=== PATIENT | female | born 1975 | race Caucasian/White ===

== ENCOUNTER 2022-07-08 10:46 | Emergency (ER) | payer OTHER, SELFPAY ==
[2022-07-08] VITALS (15 sets, daily range): BP systolic 113–170; BP diastolic 54–85; PULSE 62–130; RESP 15–25; TEMP 37.1; O2SAT 96–100; BMI 25.0
--- NOTE | 2022-07-08 10:52 | DI.RAD.S_ITS ---
PROCEDURE: XR CHEST 2V INDICATIONS: shortness of breath TECHNIQUE: 2 views of the chest were acquired. COMPARISON: None. FINDINGS: Surgical changes and devices: None. Lungs and pleura: Lungs are clear. No pleural effusions or pneumothorax. Mediastinum: Mediastinal contours are normal. Heart size is normal. Bones and chest wall: No suspicious bony abnormalities. Soft tissues appear unremarkable. IMPRESSION: No acute cardiopulmonary pathology. Dictated by: Inder Chery M.D. on 07/08/2022 at 11:32 Approved by: Inder Chery M.D. on 07/08/2022 at 11:33
[2022-07-08 12:19] LABS: INR 1.1 (0.9-1.3); Prothrombin Time 12.7 SECONDS (10.1-12.7)
[2022-07-08 12:20] LABS: Add Manual Diff / Slide Review NO; Basophils Absolute Auto 0 /uL (0-100); Basophils Percent Auto 0.6 % (0-2); Eosinophils Absolute Auto 0 /uL (0-450); Eosinophils Percent Auto 0.4 % (2-4); Hematocrit 37.6 % (36-46); Lymphocytes Absolute Auto 1200 /uL (1100-4500); Lymphocytes Percent Auto 23.3 % (25-40); Mean Corpuscular HGB Conc 34.5 % (30-36); Mean Corpuscular Hemoglobin 31.7 PG (26-34); Monocytes Absolute Auto 500 /uL (0-900); Neutrophils Absolute Auto 3500 /uL (1500-7000); Neutrophils Percent Auto 66.7 % (50-75); Platelet Count 193 X10^3/uL (150-400); Red Blood Cell Count 4.09 X10^6/uL (4.0-5.2); Red Cell Distribution Width 12.6 % (11.6-14.8); White Blood Cell Count 5.2 X10^3/uL (4.5-11.0)
[2022-07-08 12:22] LABS: Alanine Aminotransferase 16 IU/L (<35); Albumin 4.3 g/dL (3.5-5.0); Albumin Globulin Ratio 1.5 (1.0-2.8); Alkaline Phosphatase 72 U/L (38-126); Aspartate Aminotransferase 29 IU/L (14-36); BUN Creatinine Ratio 17.9 (6-22); Bilirubin Total 1.3 mg/dL (0.2-1.3); Blood Urea Nitrogen 14 mg/dL (7-17); Carbon Dioxide 27 mmol/L (22-32); Chloride 103 mmol/L (98-107); Creatine Kinase 68 U/L (30-135); Estimated Glomerular Filt Rate > 60 mL/min (>60); Globulin 2.9 g/dL (1.7-4.1); Glucose 94 mg/dL (70-100); HEMOLYSIS < 15 (0-50); Sodium 138 mmol/L (137-145); Total Protein 7.2 g/dL (6.3-8.2)
[2022-07-08 12:25] LABS: Lactate (Lactic Acid) 0.8 mmol/L (0.7-2.1)
[2022-07-08 12:31] LABS: NT-proBNP (BNP-Adult 18+) 55 pg/mL (<125)
[2022-07-08 12:34] LABS: Troponin I < 0.012 ng/mL (0.01-0.034)
[2022-07-08 12:48] LABS: COVID19 -Nasal RAPID Negative (Negative)
--- NOTE | 2022-07-08 12:57 | ED_ITS ---
HPI - Chest Pain General Chief Complaint: Chest Pain Stated Complaint: SOB, Chest pain Time Seen by Provider: 07/08/22 11:03 Source: patient Mode of arrival: Ambulatory Limitations: no limitations History of Present Illness HPI narrative: Patient is a healthy 46-year-old female who presents with palpitations and some lightheadedness. She says 4 days ago she got started on minocycline for adult acne. Today however she feels like her heart is racing she feels like she is short of breath she has a little lightheaded. She also reports that she feels like she has a rubber band around her right ankle at times and can see her pulse anteriorly. She has no numbness tingling or weakness. She has no calf pain. S he has not traveled she denies any hormonal use. She has not had any fever or chills. She has been tearful many times in the emergency department. Related Data Allergies Allergy/AdvReac Type Severity Reaction Status Date / Time No Known Drug Allergies Allergy Verified 07/08/22 11:56 Review of Systems Review of Systems Narrative: GENERAL: Denies chills, fatigue, malaise, fever, sweats, travel HEENT: Denies sinus pain, ear pain, sore throat, difficulty swallowing, neck pain RESPIRATORY: Denies dyspnea, cough, wheezing, hemoptysis, sputum. CARDIOVASCULAR: See HPI GASTROINTESTINAL: Denies nausea, vomiting, abdominal pain, diarrhea, constipation, melena. : Denies dysuria, frequency, incontinence, hematuria, urinary retention, flank pain. MUSCULOSKELETAL: Denies weakness, joint pain, or bony pain SKIN: No rash, no erythema, no pruritus NEUROLOGIC: Denies weakness, dizziness, headache, numbness, change in speech, confusion PSYCHIATRIC: No concerning psychosocial issues. 12 point review of systems is negative except for those stated above and HPI Exam Initial Vital Signs Initial Vital Signs: Vital Signs Temperature 98.8 F 07/08/22 10:48 Pulse Rate 62 07/08/22 10:48 Respiratory Rate 18 07/08/22 10:48 Blood Pressure 170/74 H 07/08/22 10:48 Pulse Oximetry 100 07/08/22 10:48 Oxygen Delivery Method 07/08/22 10:48 GENERAL: Well-appearing, well-nourished and in distress. HEENT: Head atraumatic,EOMI, pupils reactive, face symmetric, moist mucous membranes CARDIOVASCULAR: Regular rate and rhythm without murmurs, rubs or gallops. RESPIRATORY: Breath sounds equal bilaterally, no wheezes rales or rhonchi. ABDOMEN: Soft, nontender. Normoactive bowel sounds all 4 quadrants. No guarding or rebound. EXTREMITIES: Normal range of motion, no clubbing or edema. Neurovascularly intact NEUROLOGICAL: Alert and oriented x4.Normal gait and speech. SKIN: Warm, dry, no laceration, no petechiae, no rashes or lesions. Scores HEART Score Heart Score history: Slightly Suspicious Heart Score EKG: Normal Heart Score Age: < 45 years old Heart Score risk factors: No known risk factors Heart Score troponin: < or = to normal limit Heart Score Total: 0 PERC Score Age greater than or equal to 50 years: No Heart rate greater than or equal to 100 bpm: Yes Room Air O2 Sat less than 95%: No Unilateral leg swelling: No Recent trauma or surgery: No Hemoptysis: No Prior PE or DVT: No Hormone Use: No Total PERC Score: 1 Course Orders Ordered: ED Orders 07/08/22 10:52 XR chest 2V Stat Measure peak expiratory flow ONCE RT Consult Eval and Treat Now 07/08/22 11:10 EKG-12 Lead Stat 07/08/22 11:43 Complete Blood Count AUTO DIFF Stat Comprehensive Metabolic Panel Stat D Dimer Stat Lactate (Lactic Acid) Stat NT-proBNP (BNP-Adult 18+) Stat Prothrombin Time INR Stat Troponin & CK Cardiac Panel Stat 07/08/22 12:33 COVID19 -Nasal RAPID/Pre-Proc Stat 07/08/22 13:00 EKG-12 Lead Stat Vital Signs Vital signs: Vital Signs - 8 hr 07/08/22 10:48 07/08/22 11:09 07/08/22 11:30 Temperature 98.8 F Pulse Rate 62 67 82 Respiratory Rate 18 25 H Blood Pressure 170/74 H Pulse Oximetry 100 99 Oxygen Delivery Method Room Air 07/08/22 11:35 07/08/22 11:35 07/08/22 12:00 Temperature Pulse Rate 62 Respiratory Rate 18 Blood Pressure 116/57 L 115/56 L Pulse Oximetry 98 Oxygen Delivery Method 07/08/22 12:00 07/08/22 12:30 07/08/22 12:30 Temperature Pulse Rate 62 67 Respiratory Rate 16 19 Blood Pressure 113/54 L Pulse Oximetry 98 99 Oxygen Delivery Method 07/08/22 12:31 07/08/22 12:32 07/08/22 13:29 Temperature Pulse Rate 65 130 H Respiratory Rate 19 Blood Pressure 124/56 L Pulse Oximetry 99 Oxygen Delivery Method MDM - Chest Pain Lab Data Result diagrams: 07/08/22 11:43 07/08/22 11:43 Labs: Lab Results 07/08/22 07/08/22 07/08/22 Range/Units 11:43 11:43 11:43 WBC 5.2 (4.5-11.0) X10^3/uL RBC 4.09 (4.0-5.2) X10^6/uL Hgb 13.0 (12.0-16.0) g/dL Hct 37.6 (36-46) % MCV 92.0 (80-100) fL MCH 31.7 (26-34) PG MCHC 34.5 (30-36) % RDW 12.6 (11.6-14.8) % Plt Count 193 (150-400) X10^3/uL Neut % (Auto) 66.7 (50-75) % Lymph % (Auto) 23.3 L (25-40) % [place] % (Auto) 9.0 (3-14) % Eos % (Auto) 0.4 L (2-4) % Baso % (Auto) 0.6 (0-2) % Neut # (Auto) 3500 (3109-4080) /uL Lymph # (Auto) 1200 (8739-6527) /uL [place] # (Auto) 500 (0-900) /uL Eos # (Auto) 0 (0-450) /uL Baso # (Auto) 0 (0-100) /uL PT 12.7 (10.1-12.7) SECONDS INR 1.1 (0.9-1.3) D-Dimer (<500) ng/ml Sodium 138 (137-145) mmol/L Potassium 4.0 (3.4-5.1) mmol/L Chloride 103 (98-107) mmol/L Carbon Dioxide 27 (22-32) mmol/L BUN 14 (7-17) mg/dL Creatinine 0.78 (0.52-1.04) mg/dL Estimated GFR > 60 (>60) mL/min BUN/Creatinine Ratio 17.9 (6-22) Glucose 94 (70-100) mg/dL Lactate (0.7-2.1) mmol/L Calcium 9.0 (8.4-10.2) mg/dL Total Bilirubin 1.3 (0.2-1.3) mg/dL AST 29 (14-36) IU/L ALT 16 (<35) IU/L Alkaline Phosphatase 72 (38-126) U/L Total Creatine Kinase (30-135) U/L CK-MB (CK-2) CK-MB (CK-2) Rel Index Troponin I (0.01-0.034) ng/mL NT-Pro-B Natriuret Pep 55 (<125) pg/mL Total Protein 7.2 (6.3-8.2) g/dL Albumin 4.3 (3.5-5.0) g/dL Globulin 2.9 (1.7-4.1) g/dL Albumin/Globulin Ratio 1.5 (1.0-2.8) SARS-CoV-2 (PCR) (Negative) 07/08/22 07/08/22 07/08/22 Range/Units 11:43 11:43 11:43 WBC (4.5-11.0) X10^3/uL RBC (4.0-5.2) X10^6/uL Hgb (12.0-16.0) g/dL Hct (36-46) % MCV (80-100) fL MCH (26-34) PG MCHC (30-36) % RDW (11.6-14.8) % Plt Count (150-400) X10^3/uL Neut % (Auto) (50-75) % Lymph % (Auto) (25-40) % [place] % (Auto) (3-14) % Eos % (Auto) (2-4) % Baso % (Auto) (0-2) % Neut # (Auto) (0206-3884) /uL Lymph # (Auto) (2913-6881) /uL [place] # (Auto) (0-900) /uL Eos # (Auto) (0-450) /uL Baso # (Auto) (0-100) /uL PT (10.1-12.7) SECONDS INR (0.9-1.3) D-Dimer < 500 (<500) ng/ml Sodium (137-145) mmol/L Potassium (3.4-5.1) mmol/L Chloride (98-107) mmol/L Carbon Dioxide (22-32) mmol/L BUN (7-17) mg/dL Creatinine (0.52-1.04) mg/dL Estimated GFR (>60) mL/min BUN/Creatinine Ratio (6-22) Glucose (70-100) mg/dL Lactate 0.8 (0.7-2.1) mmol/L Calcium (8.4-10.2) mg/dL Total Bilirubin (0.2-1.3) mg/dL AST (14-36) IU/L ALT (<35) IU/L Alkaline Phosphatase (38-126) U/L Total Creatine Kinase 68 (30-135) U/L CK-MB (CK-2) TNP CK-MB (CK-2) Rel Index TNP Troponin I < 0.012 (0.01-0.034) ng/mL NT-Pro-B Natriuret Pep (<125) pg/mL Total Protein (6.3-8.2) g/dL Albumin (3.5-5.0) g/dL Globulin (1.7-4.1) g/dL Albumin/Globulin Ratio (1.0-2.8) SARS-CoV-2 (PCR) (Negative) 07/08/22 Range/Units 12:33 WBC (4.5-11.0) X10^3/uL RBC (4.0-5.2) X10^6/uL Hgb (12.0-16.0) g/dL Hct (36-46) % MCV (80-100) fL MCH (26-34) PG MCHC (30-36) % RDW (11.6-14.8) % Plt Count (150-400) X10^3/uL Neut % (Auto) (50-75) % Lymph % (Auto) (25-40) % [place] % (Auto) (3-14) % Eos % (Auto) (2-4) % Baso % (Auto) (0-2) % Neut # (Auto) (2077-2805) /uL Lymph # (Auto) (7982-3819) /uL [place] # (Auto) (0-900) /uL Eos # (Auto) (0-450) /uL Baso # (Auto) (0-100) /uL PT (10.1-12.7) SECONDS INR (0.9-1.3) D-Dimer (<500) ng/ml Sodium (137-145) mmol/L Potassium (3.4-5.1) mmol/L Chloride (98-107) mmol/L Carbon Dioxide (22-32) mmol/L BUN (7-17) mg/dL Creatinine (0.52-1.04) mg/dL Estimated GFR (>60) mL/min BUN/Creatinine Ratio (6-22) Glucose (70-100) mg/dL Lactate (0.7-2.1) mmol/L Calcium (8.4-10.2) mg/dL Total Bilirubin (0.2-1.3) mg/dL AST (14-36) IU/L ALT (<35) IU/L Alkaline Phosphatase (38-126) U/L Total Creatine Kinase (30-135) U/L CK-MB (CK-2) CK-MB (CK-2) Rel Index Troponin I (0.01-0.034) ng/mL NT-Pro-B Natriuret Pep (<125) pg/mL Total Protein (6.3-8.2) g/dL Albumin (3.5-5.0) g/dL Globulin (1.7-4.1) g/dL Albumin/Globulin Ratio (1.0-2.8) SARS-CoV-2 (PCR) Negative (Negative) Imaging Data Chest x-ray: Radiologist's Impression: Signed Patient: Asya Casas MR#: [id number] : 1975 Acct:[id number] Age/Sex: 46 / F Date of Service: 07/08/22 Loc: ED Accession Number: [id number] ?? Procedure: XR chest 2V Ordering Provider: Rosanna Castanon D.O. PROCEDURE:? XR CHEST 2V ? INDICATIONS:? shortness of breath ? TECHNIQUE:? 2 views of the chest were acquired.? ? COMPARISON:? None. ? FINDINGS:? ? Surgical changes and devices:? None.? ? Lungs and pleura:? Lungs are clear.? No pleural effusions or pneumothorax.? ? Mediastinum:? Mediastinal contours are normal.? Heart size is normal.? ? Bones and chest wall:? No suspicious bony abnormalities.? Soft tissues appear unremarkable.? ? IMPRESSION:? No acute cardiopulmonary pathology. ? ? Dictated by: Inder Chery M.D. on 07/08/2022 at 11:32 ? ? ECG Data Interpretation: Normal sinus rhythm rate 59 MO interval 1 2 QRS [address] changes inversion Normal sinus rhythm rate 69 MO interval [address] changes similar to previous EKG MDM Narrative Medical decision making narrative: Patient has had runs of sinus tachycardia in the 130s. At that time nursing staff but since she is very tearful emotional and is easily talked to in her heart rate improves. Not sure if her her symptoms are related to minocycline or not. I encouraged her to stop the antibiotic and see if her symptoms improve. Her D-dimer is negative her EKGs are normal her chest x-ray is negative troponin negative. At this time she certainly has no sign of infection. She is neurologically intact. Minocycline does not cause palpitations but it can cause dizziness in were severely Santacruz-Nicolas. She certainly has no rash or sign of severe adverse reaction. I have explained to her all of these things and tried to reassure her. There is certainly no life-threatening emergency that I see at this time the. She complains of a rubber band around her right ankle. There is no swelling there is no erythema again is negative unlikely to be a DVT. Discharge Plan Departure Patient Disposition: Home Clinical Impression: Palpitations Instructions: DI for Palpitations Activity Restrictions/Additional Instructions: *You have been diagnosed with palpitation *What to do: At this time you had extensive workup in the emergency department. Her chest x-ray is negative your blood work is reassuring you do not have a blood clot you do not have a heart attack your kidneys electrolytes and blood levels are within normal limits. You were noted to have an elevated sinus rhythm which is normal and not harmful, which lasted only briefly. The symptoms may remain not be related to your new antibiotic. There is no harm in stopping her antibiotic to see if your symptoms improve. Otherwise please follow-up with a primary care provider for a Holter monitor to monitor your heart rhythm *Continue to take medications as directed *Follow up with your primary care provider in 2-3 days or call [phone] *Return to ER if you should have increased palpitations dizziness chest pain shortness of breath passing or any new, worsening or concerning symptoms
[2022-07-08 13:07] LABS: D Dimer < 500 ng/ml (<500)
--- NOTE | 2022-07-08 13:29 | PC.NURSE ---
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 Walked patient through slow deep breaths. Dr Castanon aware. Heart rate decreased to sinus rate of 84.
== END 2022-07-08 14:54 | disposition home or self-care (01) ==
PROVIDERS: Emergency Provider Emergency Medicine
DX: R00.2 Palpitations (principal); R06.02 Shortness of breath; Z20.822 Contact with and (suspected) exposure to COVID-19
CPT/HCPCS: 36415; 71046; 80053; 82550; 83605; 83880; 84484; 85025; 85379; 85610; 87635; 93005; 93010; 99284; C9803

== ENCOUNTER → 2022-12-23 07:47 | Outpatient (CLI) | payer OTHER, SELFPAY ==
--- NOTE | 2022-12-23 07:49 | DI.US.S_ITS ---
PROCEDURE: US PELVIC COMPLETE INDICATIONS: DYSMENORRHEA TECHNIQUE: Real-time scanning was performed of the pelvic organs, with image documentation. Additional endovaginal scanning was necessary due to incomplete visualization of the adnexal and endometrial structures by transabdominal scanning. COMPARISON: None. FINDINGS: Uterus: Uterus is anteverted and normal in size at 8.2 x 5.1 x 6.5 cm. The myometrium is heterogenous with multiple fibroids: Right anterior subserosal fibroid measuring 1.1 x 0.8 x 1.3 cm; right anterior subserosal fibroid measuring 0.7 x 0.5 x 0.7 cm; left posterior subserosal fibroid measuring 1.4 x 1.1 x 1.2 cm. The endometrium measures 12.4 mm combined thickness. Ovaries: The right ovary measures 3.0 x 2.1 x 2.6 cm, with a calculated ovarian volume of 8.7 cc. The left ovary measures 2.6 x 2.1 x 2.1 cm, with a calculated ovarian volume of 5.9 cc. The ovaries have a normal sonographic appearance. Less than 12 follicles can be seen in each ovary. No adnexal masses are seen. The right ovary has a simple follicular cyst measuring 1.1 x 1.1 x 1.3 cm. The left ovary has a simple cyst measuring 1.2 x 0.9 x 0.9 cm. Other: No pathologic free abdominal or pelvic fluid. IMPRESSION: 1. No acute ultrasound abnormality 2. Multiple small uterine fibroids. We strive to produce accurate, complete, and clear reports of imaging services. To assist us in improving patient care, this report was composed using standard report templates and voice recognition software. Therefore, it may contain abnormal punctuation, insertions and/or omissions. Occasional wrong-word or sound-alike substitutions may occur. Though we review the report and make efforts to correct it, we do recommend that the report be read carefully in proper context to recognize any text inaccuracies. Dictated by: Mirza Bethea M.D. on 12/23/2022 at 9:04 Approved by: Mirza Bethea M.D. on 12/23/2022 at 9:08
== END ==
PROVIDERS: Referring Provider Family Medicine; Visit Provider Family Medicine
DX: N94.6 Dysmenorrhea, unspecified (principal); D25.2 Subserosal leiomyoma of uterus; N83.01 Follicular cyst of right ovary; N83.292 Other ovarian cyst, left side
CPT/HCPCS: 76856

== ENCOUNTER → 2024-03-29 14:12 | Outpatient (CLI) | payer OTHER, SELFPAY ==
--- NOTE | 2024-03-29 | DI.MG.S_ITS ---
BILATERAL DIGITAL SCREENING MAMMOGRAM 3D/2D WITH CAD: 03/29/2024 CLINICAL: Routine screening. Comparisons: 12/12/22, 09/25/21, 07/31/20 Both breasts are extremely dense, which lowers the sensitivity of mammography (category d />75% glandular tissue). Current study was also evaluated with a Computer Aided Detection (CAD) system. No significant masses, calcifications, or other findings are seen in either breast. IMPRESSION: NEGATIVE There is no mammographic evidence of malignancy. A 1 year screening mammogram is recommended. Consider supplemental MRI screening due to elevated lifetime risk Based on Tyrer-Cuzick model (a risk assessment model), the patient's lifetime risk is 24.5% and her 10 year risk is 5.0%. If a patient has an elevated risk, a more comprehensive evaluation should be considered and/or a referral to a genetic counselor. The [employer], [employer], and NCCN Guidelines advise the consideration of Breast MRI as an adjunct to screening mammography in patients whose Lifetime risk to develop breast cancer is 20% or higher. This exam was interpreted at Station ID: [id number]. NOTE: For mammograms, a report in lay terms will be sent to the patient. Approximately 15% of breast malignancies will not be visualized mammographically. In the management of a palpable breast mass, a negative mammogram must not discourage biopsy of a clinically suspicious lesion. Electronically Signed By: Jorge Cotto M.D. lc/:04/05/2024 13:03:46 letter sent: Normal Exam ACR BI-RADS Category 1: Negative 3341F
== END ==
PROVIDERS: Referring Provider Family Medicine; Visit Provider Family Medicine
DX: Z12.31 Encounter for screening mammogram for malignant neoplasm of breast (principal); R92.343 Mammographic extreme density, bilateral breasts
CPT/HCPCS: 77063; 77067

== ENCOUNTER → 2024-11-11 10:12 | Outpatient (CLI) | payer OTHER, SELFPAY ==
[2024-11-11 11:40] LABS: Influenza A - CEPHEID Flu A NEGATIVE (NEGATIVE); Influenza B - CEPHEID Flu B NEGATIVE (NEGATIVE); Respiratory Syncytial Virus Negative (Negative)
[2024-11-11 11:49] LABS: COVID-19 CEPHEID 4-PLEX PCR Negative (Negative)
== END ==
PROVIDERS: Visit Provider Nurse Practitioner Family
DX: R05.1 Acute cough (principal)
CPT/HCPCS: 0241U

== ENCOUNTER → 2025-08-07 12:00 | Outpatient (CLI) | payer OTHER, SELFPAY ==
--- NOTE | 2025-08-07 12:03 | DI.MG.S_ITS ---
MM screening mammo BI: 08/07/2025. BI-RADS: 0 CLINICAL: 50-year old female for bilateral screening mammogram. Tyrer-Cuzick lifetime risk of 13.4%. No personal or first-degree family history of breast cancer. PRIOR EXAMS 03/29/2024, outside priors 12/12/2022, 09/25/2021, 07/31/2020. MAMMOGRAPHY TECHNIQUE: 2D and 3D (tomosynthesis) digital mammographic views obtained, with additional images as needed for full coverage. Current study was also evaluated with a Computer Aided Detection (CAD) system. DENSITY C. The breasts are heterogeneously dense, which may obscure small masses. MAMMOGRAPHY FINDINGS Right: No suspicious mass, asymmetry, microcalcification, or other abnormality seen. Left: Upper Outer Quadrant, Middle depth: There are multiple focal asymmetries present. Focal asymmetry needing additional imaging evaluation. IMPRESSION: Right * No evidence of malignancy. Left (Asymmetry): Upper Outer Quadrant, Middle depth * Incomplete - focal asymmetry needing additional imaging evaluation. RECOMMENDATIONS Left: Upper Outer Quadrant, Middle depth * Further evaluation with diagnostic mammography and diagnostic ultrasound. Ultrasound to be performed only if needed. OVERALL ASSESSMENT CATEGORY BI-RADS-0: Incomplete - Need Additional Imaging Evaluation. ELECTRONICALLY SIGNED: Denae Hester M.D. on 08/07/2025 at 01:32:25 PM PT Interpreting Station ID: [id number]
== END ==
LOC: MAMMO 12:02
PROVIDERS: PCP Family Medicine; Referring Provider Family Medicine; Visit Provider Family Medicine
DX: Z12.31 Encounter for screening mammogram for malignant neoplasm of breast (principal); R92.333 Mammographic heterogeneous density, bilateral breasts
CPT/HCPCS: 77063; 77067

== ENCOUNTER → 2025-08-07 12:04 | Outpatient (CLI) | payer OTHER, SELFPAY ==
[2025-08-07 15:06] LABS: TSH w/ Reflex to FT4 1.28 uIU/mL (0.47-4.68)
== END ==
PROVIDERS: PCP Family Medicine; Referring Provider Family Medicine; Visit Provider Family Medicine
DX: R63.5 Abnormal weight gain (principal); R53.83 Other fatigue
CPT/HCPCS: 36415; 84443

== ENCOUNTER → 2025-10-21 | Outpatient (CLI) | payer OTHER, SELFPAY ==
--- NOTE | 2025-10-21 09:22 | DI.MG.S_ITS ---
US breast LT limited, MM diagnostic mammo unilat LT: 10/21/2025 BI-RADS: 4 CLINICAL: 50-year old female for left diagnostic mammogram and left diagnostic breast ultrasound that is a recall from screening on 08/07/2025. Tyrer-Cuzick lifetime risk of 13.4%. No personal or first-degree family history of breast cancer. PRIOR EXAMS 08/07/2025, 03/29/2024, 12/12/2022, 09/25/2021, 07/31/2020, 08/30/2019. MAMMOGRAPHY TECHNIQUE: 2D and 3D (tomosynthesis) digital mammographic views obtained, with additional images as needed for full coverage. Current study was also evaluated with a Computer Aided Detection (CAD) system. ULTRASOUND TECHNIQUE Real-time carrillo scale and color doppler imaging of the area of clinical interest was performed with image documentation. Left targeted breast ultrasound of the area of clinical interest and the axilla was performed with image documentation. DENSITY Left: C. The breast is heterogeneously dense, which may obscure small masses. MAMMOGRAPHY FINDINGS Left (finding-1): Upper Outer Quadrant, Middle depth, measuring 4.9cm: Correlating with findings on screening mammogram there is a circumscribed, oval, equal- density mass present with associated calcifications. Mass has increased in size. ULTRASOUND FINDINGS Left (finding-1): Upper Outer at 12:30, 4 cm from nipple, measuring 4.5 x 2 x 4.2 cm: Correlating with findings on mammogram there is an oval, circumscribed, hypoechoic mass that is parallel. Doppler shows no vascularity. Left: Axilla: No abnormal lymph nodes are seen in the axilla. IMPRESSION: Left (Mass): Upper Outer at 12:30, 4 cm from nipple, measuring 4.5 x 2 x 4.2 cm * Suspicious findings with likelihood of malignancy. RECOMMENDATIONS Left: Upper Outer at 12:30, 4 cm from nipple * Ultrasound-guided biopsy for further evaluation. COMMENTS: Findings and recommendations were conveyed to the patient during today's evaluation by Dr. Hester. OVERALL ASSESSMENT CATEGORY BI-RADS-4: Suspicious. ELECTRONICALLY SIGNED: Denae Hester M.D. on 10/21/2025 at 02:45:12 PM PT Interpreting Station ID: [id number]
== END ==
LOC: MAMMO 09:22
PROVIDERS: PCP Family Medicine; Referring Provider Family Medicine; Visit Provider Family Medicine
DX: R92.8 Other abnormal and inconclusive findings on diagnostic imaging of breast (principal); N63.21 Unspecified lump in the left breast, upper outer quadrant; R92.332 Mammographic heterogeneous density, left breast
CPT/HCPCS: 76642; 77065; G0279

== ENCOUNTER → 2025-11-09 11:35 | Outpatient (CLI) | payer OTHER, SELFPAY ==
[2025-11-09 12:55] LABS: Influenza A - CEPHEID Flu A POSITIVE (NEGATIVE); Influenza B - CEPHEID Flu B NEGATIVE (NEGATIVE)
[2025-11-09 12:58] LABS: COVID-19 CEPHEID 4-PLEX PCR Negative (Negative)
== END ==
PROVIDERS: PCP Family Medicine; Visit Provider Chiropractor
DX: R05.1 Acute cough (principal)
CPT/HCPCS: 87637